=== PATIENT | male | born 1950 | race Caucasian/White ===

== ENCOUNTER 2017-09-26 17:38 | Emergency (ER) | payer MEDICARE, OTHER ==
[~2017-09-26] VITALS: Ht 180.3 cm; Wt 79.4 kg
[2017-09-26 18:44] LABS: BASO % 0 % (0-3); EOS % 0 % (0-3); HEMATOCRIT 46.8 % (39.0-53.0); HEMOGLOBIN 15.5 g/dL (13.0-17.5); LYMPH # 1.2 x10^3/uL (1.0-4.8); LYMPH % 9 % (24-48); MEAN CORPUSCULAR HEMOGLOBIN 30 pg (25-35); MEAN CORPUSCULAR HGB CONC 33 g/dL (31-37); MEAN CORPUSCULAR VOLUME 90 fL (79-100); MONO % 8 % (0-9); NEUT % 83 % (31-73); PLATELET COUNT 179 x10^3/uL (140-400); RED BLOOD COUNT 5.18 x10^6/uL (4.30-5.70); RED CELL DISTRIBUTION WIDTH 14.7 % (11.5-14.5); WHITE BLOOD COUNT 13.1 x10^3/uL (4.0-11.0)
[2017-09-26] MEDS ORDERED: ONDANSETRON PF 4 MG/2 ML VIAL. IV ONE (18:45)
[2017-09-26] MEDS ORDERED: IV NORMAL SALINE 1000ML BAG 1,000 ML IV ONE (18:45)
[2017-09-26] MEDS: fentaNYL PF VIAL 100 MCG/2 ML VIAL IV PRN ×2 (18:50→19:22)
[2017-09-26 19:05] LABS: BILIRUBIN,URINE SMALL (NEG); GLUCOSE,URINE NEGATIVE (NEG); NITRITE,URINE NEGATIVE (NEG); PROTEIN,URINE 30 mg/dL (NEG-TRACE)
[2017-09-26 19:07] LABS: CALCIUM 8.8 mg/dL (8.5-10.1); CREATININE 1.4 mg/dL (0.7-1.3); GFR 50.4
[2017-09-26 19:13] LABS: ALBUMIN 3.6 g/dL (3.4-5.0); ALBUMIN/GLOBULIN RATIO 0.8 (1.0-1.7); TOTAL PROTEIN 7.9 g/dL (6.4-8.2)
[2017-09-26 19:29] LABS: BACTERIA,URINE 0 /HPF (0-FEW); SQUAMOUS EPITHELIAL CELL,UR FEW /LPF; WBC,URINE OCC /HPF (0-4)
[2017-09-26] MEDS ORDERED: CONTRAST GIVEN MC PRN (19:30)
[2017-09-26] MEDS ORDERED: IOHEXOL 300 MG/ML 100ML VIAL. IV ONE (19:30)
--- NOTE | 2017-09-26 19:50 | RAD ---
PQRS Compliance Statement: One or more of the following individualized dose reduction techniques were utilized for this examination: 1. Automated exposure control 2. Adjustment of the mA and/or kV according to patient size 3. Use of iterative reconstruction technique CT ABD PELV W/ IV CONTRST ONLY Clinical Indication: llq pain and constipation x several days, Comparison: None. Technique: Helical CT imaging of the abdomen and pelvis is performed after 60 cc Omnipaque 300 IV contrast. Oral contrast not given. Findings: Dense coronary artery disease. Cardiac size normal. Calcific aortic valve stenosis. Mild atelectasis or scarring in the right lower lobe. Median sternotomy wires. Probable CABG. Liver, gallbladder, spleen, pancreas, adrenal glands, and abdominal aorta caliber are normal. Small cysts of the right kidney. No right hydronephrosis. 2 mm nonobstructing calculus upper pole of left kidney. The left kidney is hypoenhancing compared to the right. There is moderate left hydroureteronephrosis secondary to a 4 mm calculus in the distal left ureter just proximal to the ureterovesicular junction, image 86. Urinary bladder is not thick-walled. There is a calculus in the right bladder measuring 8 x 3 mm. Alternatively this may be a calcification in the wall. Stomach unremarkable. No dilated small bowel. No colon wall thickening. Appendix is not identified, no secondary signs of appendicitis. There is prominent stool in the ascending colon. Prostate size upper limits of normal. Small fat-containing left inguinal hernia. Degenerative spondylosis of the thoracolumbar spine. IMPRESSION: 1. Moderate left obstructive uropathy secondary to a 4 mm calculus in the distal left ureter. 2. Nonobstructing left renal calculus. 3. There is a calculus in the right bladder versus a wall calcification. Electronically signed by: Frankie Saxena MD (09/26/2017 7:47 PM) [facility]
[2017-09-26] MEDS ORDERED: MORPHINE SULFATE 4 MG/ML DISP.SYRIN. IV/SQ PRN (20:15)
[2017-09-26] MEDS ORDERED: HYDR-971 PO (20:28)
[2017-09-26] MEDS ORDERED: ONDA4TAB10 SL (20:28)
[2017-09-26] MEDS ORDERED: TAMS0.4C97 PO (20:28)
--- NOTE | 2017-09-26 20:28 | PHYS DOC ---
Past Medical History Past Medical History: CAD, Diabetes-Type II, High Cholesterol, Hypertension Past Surgical History: Coronary Bypass Surgery Alcohol Use: Occasionally Drug Use: None Adult General Chief Complaint Chief Complaint: FLANK PAIN HPI HPI Patient is a 67 year old male who presents with abdominal pain & flank pain. The patient reports 3 day history of left sided abdominal pain with radiation to left flank. He reports 3 episodes of vomiting. Reports subjective fever. Denies hematemesis, diarrhea, constipation, hematochezia/melena, dysuria, hematuria. Denies previous history of similar symptoms. History of DM, HTN, CAD s/p CABG. Denies history of abdominal surgeries. PCP is Dr. Cornejo. Review of Systems Review of Systems Constitutional: Reports fever HENT: Denies nasal congestion or sore throat Respiratory: Denies cough or shortness of breath Cardiovascular: Denies chest pain or edema GI: Reports abdominal pain, nausea, vomiting, denies bloody stools or diarrhea : Denies dysuria or hematuria Musculoskeletal: Reports flank pain Integument: Denies rash or skin lesions Neurologic: Denies headache, focal weakness or sensory changes All other systems were reviewed and found to be within normal limits, except as documented in this note. Current Medications Current Medications Current Medications Medications (Trade) Dose Ordered Sig/Kedar Start Time Stop Time Status Last Admin Dose Admin Fentanyl Citrate (Fentanyl 2ml Vial) 50 mcg PRN Q15MIN PRN 09/26/17 18:45 09/26/17 20:53 DC 09/26/17 19:22 50 MCG Info (Do NOT chart on this entry -- for MONITORING) 1 each PRN DAILY PRN 09/26/17 19:30 09/26/17 20:53 DC Iohexol (Omnipaque 300 Mg/ml) 60 ml 1X ONCE 09/26/17 19:30 09/26/17 19:31 DC 09/26/17 19:35 60 ML Morphine Sulfate 4 mg PRN Q15MIN PRN 09/26/17 20:15 09/26/17 20:53 DC 09/26/17 20:29 4 MG Ondansetron HCl (Zofran) 4 mg 1X ONCE 09/26/17 18:45 09/26/17 18:46 DC 09/26/17 18:49 4 MG Sodium Chloride 1,000 ml @ 1,000 mls/hr 1X ONCE 09/26/17 18:45 09/26/17 19:44 DC 09/26/17 18:49 1,000 MLS/HR Allergies Allergies Allergies Coded Allergies Type Severity Reaction Last Updated Verified No Known Drug Allergies 09/26/17 No Physical Exam Physical Exam Constitutional: Well developed, well nourished, no acute distress, non-toxic appearance. HENT: Normocephalic, atraumatic, bilateral external ears normal, oropharynx moist, nose normal. Eyes: conjunctiva normal, no discharge. Neck: supple, no stridor. Cardiovascular: RRR, no murmurs, no edema. Lungs & Thorax: LCTAB, no wheezing, no respiratory distress. Abdomen: soft, left lower quadrant tenderness without rebound/guarding, no masses or pulsatile masses, no rebound/guarding, nondistended. Skin: Warm, dry, no erythema, no rash. Back: No CVA tenderness. Extremities: No tenderness, no edema. Neurologic: Alert and oriented X 3, no focal deficits noted. Psychologic: Affect normal, judgement normal, mood normal. Current Patient Data Vital Signs Vital Signs Date Time Temp Pulse Resp B/P (MAP) Pulse Ox O2 Delivery O2 Flow Rate FiO2 09/26/17 20:30 82 24 134/64 (87) 92 Room Air 09/26/17 18:13 97.8 97.8 Lab Values Laboratory Tests Test 09/26/17 18:25 09/26/17 18:55 White Blood Count 13.1 x10^3/uL (4.0-11.0) H Red Blood Count 5.18 x10^6/uL (4.30-5.70) Hemoglobin 15.5 g/dL (13.0-17.5) Hematocrit 46.8 % (39.0-53.0) Mean Corpuscular Volume 90 fL (79-100) Mean Corpuscular Hemoglobin 30 pg (25-35) Mean Corpuscular Hemoglobin Concent 33 g/dL (31-37) Red Cell Distribution Width 14.7 % (11.5-14.5) H Platelet Count 179 x10^3/uL (140-400) Neutrophils (%) (Auto) 83 % (31-73) H Lymphocytes (%) (Auto) 9 % (24-48) L Monocytes (%) (Auto) 8 % (0-9) Eosinophils (%) (Auto) 0 % (0-3) Basophils (%) (Auto) 0 % (0-3) Neutrophils # (Auto) 10.9 x10^3uL (1.8-7.7) H Lymphocytes # (Auto) 1.2 x10^3/uL (1.0-4.8) Monocytes # (Auto) 1.0 x10^3/uL (0.0-1.1) Eosinophils # (Auto) 0.0 x10^3/uL (0.0-0.7) Basophils # (Auto) 0.0 x10^3/uL (0.0-0.2) Sodium Level 139 mmol/L (136-145) Potassium Level 4.0 mmol/L (3.5-5.1) Chloride Level 98 mmol/L (98-107) Carbon Dioxide Level 28 mmol/L (21-32) Anion Gap 13 (6-14) Blood Urea Nitrogen 32 mg/dL (8-26) H Creatinine 1.4 mg/dL (0.7-1.3) H Estimated GFR (Cockcroft-Gault) 50.4 BUN/Creatinine Ratio 23 (6-20) H Glucose Level 155 mg/dL (70-99) H Calcium Level 8.8 mg/dL (8.5-10.1) Total Bilirubin 1.0 mg/dL (0.2-1.0) Aspartate Amino Transferase (AST) 17 U/L (15-37) Alanine Aminotransferase (ALT) 14 U/L (16-63) L Alkaline Phosphatase 70 U/L (46-116) Total Protein 7.9 g/dL (6.4-8.2) Albumin 3.6 g/dL (3.4-5.0) Albumin/Globulin Ratio 0.8 (1.0-1.7) L Lipase 232 U/L (73-393) Urine Collection Type Unknown Urine Color Dk yellow Urine Clarity Clear Urine pH 6.0 Urine Specific [employer] >=1.030 Urine Protein 30 mg/dL (NEG-TRACE) Urine Glucose (UA) Negative mg/dL (NEG) Urine Ketones (Stick) 40 mg/dL (NEG) Urine Blood Large (NEG) Urine Nitrite Negative (NEG) Urine Bilirubin Small (NEG) Urine Urobilinogen Dipstick 1.0 mg/dL (0.2 mg/dL) Urine Leukocyte Esterase Negative (NEG) Urine RBC 6-10 /HPF (0-2) Urine WBC Occ /HPF (0-4) Urine Squamous Epithelial Cells Few /LPF Urine Bacteria 0 /HPF (0-FEW) Urine Hyaline Casts Occasional /HPF Urine Mucus Marked /LPF Laboratory Tests 09/26/17 18:25 Laboratory Tests 09/26/17 18:25 EKG EKG [] Radiology/Procedures Radiology/Procedures PROCEDURE: CT ABD PELV W/ IV CONTRST ONLY PQRS Compliance Statement: One or more of the following individualized dose reduction techniques were utilized for this examination: 1. Automated exposure control 2. Adjustment of the mA and/or kV according to patient size 3. Use of iterative reconstruction technique CT ABD PELV W/ IV CONTRST ONLY Clinical Indication: llq pain and constipation x several days, Comparison: None. Technique: Helical CT imaging of the abdomen and pelvis is performed after 60 cc Omnipaque 300 IV contrast. Oral contrast not given. Findings: Dense coronary artery disease. Cardiac size normal. Calcific aortic valve stenosis. Mild atelectasis or scarring in the right lower lobe. Median sternotomy wires. Probable CABG. Liver, gallbladder, spleen, pancreas, adrenal glands, and abdominal aorta caliber are normal. Small cysts of the right kidney. No right hydronephrosis. 2 mm nonobstructing calculus upper pole of left kidney. The left kidney is hypoenhancing compared to the right. There is moderate left hydroureteronephrosis secondary to a 4 mm calculus in the distal left ureter just proximal to the ureterovesicular junction, image 86. Urinary bladder is not thick-walled. There is a calculus in the right bladder measuring 8 x 3 mm. Alternatively this may be a calcification in the wall. Stomach unremarkable. No dilated small bowel. No colon wall thickening. Appendix is not identified, no secondary signs of appendicitis. There is prominent stool in the ascending colon. Prostate size upper limits of normal. Small fat-containing left inguinal hernia. Degenerative spondylosis of the thoracolumbar spine. IMPRESSION: 1. Moderate left obstructive uropathy secondary to a 4 mm calculus in the distal left ureter. 2. Nonobstructing left renal calculus. 3. There is a calculus in the right bladder versus a wall calcification. Electronically signed by: Frankie Saxena MD (09/26/2017 7:47 PM) [facility] DICTATED and SIGNED BY: FRANKIE SAXENA MD DATE: 09/26/171937[] Course & Med Decision Making Course & Med Decision Making Pertinent Labs and Imaging studies reviewed. (See chart for details) The patient presents with abdominal pain & vomiting. Gave IV fluids, zofran, pain medication. Labs were as above, UA not provided for quite some time. Obtained CT abdomen/pelvis as pain seemed primarily lower abdominal & I did not appreciate any flank pain on exam. He was found to have hematuria when UA eventually was obtained, & CT showed 4 mm distal ureteral stone. His pain improved & he tolerated oral intake. Recommend rest, hydration, strain urine, zofran for nausea, norco for pain, flomax to promote stone passage. No urology coverage here, recommend follow up with PCP & urology at [facility], within 1 week. Come back for high fever, severe pain, uncontrolled vomiting, any otherwise worsening condition. He is aware that there is no urology coverage here & return visit to this ED could potentially require transfer if admission were required, but we are always able to evaluate. The patient is discharged home in stable condition. [] Dragon Disclaimer Dragon Disclaimer This electronic medical record was generated, in whole or in part, using a voice recognition dictation system. Departure Departure Impression: Primary Impression: Ureteral colic Disposition: 01 HOME, SELF-CARE Condition: IMPROVED Referrals: LILIAM CORNEJO MD (PCP) Patient Instructions: Kidney Stones, [id number] Additional Instructions: You were seen in the emergency department today for kidney stone. Please rest, drink fluids to stay hydrated, take zofran for nausea & use norco for pain. Strain your urine to catch the stone if it passes. Follow up with a urology doctor in 1 week. Come back for high fever, severe pain, uncontrolled vomiting , any otherwise worsening condition. [facility] does not have a urologist on staff until after 10/07. Scripts Tamsulosin Hcl (FLOMAX) 0.4 Mg Cap.er.24h 1 CAP PO DAILY, #14 CAP 0 Refills Prov: OMID MARTINEZ MD 09/26/17 Hydrocodone/Apap 5-325 (NORCO 5-325 TABLET) 1 Each Tablet 1 TAB PO PRN Q6HRS Y for PAIN, #10 TAB 0 Refills Prov: OMID MARTINEZ MD 09/26/17 Ondansetron (ZOFRAN ODT) 4 Mg Tab.rapdis 1 TAB SL Q8HRS Y for NAUSEA/VOMITING, #10 TAB Prov: OMID MARTINEZ MD 09/26/17 OMID MARTINEZ MD Sep 26, 2017 20:28
[2017-09-26 20:30] VITALS: BP 134/64
== END 2017-09-26 20:40 | disposition home or self-care (01) ==
LOC: ER 17:38
DX: N23 Unspecified renal colic (principal); E11.9 Type 2 diabetes mellitus without complications; E78.00 Pure hypercholesterolemia, unspecified; I10 Essential (primary) hypertension; I25.10 Atherosclerotic heart disease of native coronary artery without angina pectoris; Z95.1 Presence of aortocoronary bypass graft
CPT/HCPCS: 36415; 74177; 80053; 81001; 83690; 85025; 96361; 96374; 96375; 96376; 99285; J2270; J2405; J3010; J7030; Q9967